=== PATIENT | female | born 1970 | race Caucasian/White ===

== ENCOUNTER 2016-10-03 19:18 | Emergency (ER) | payer OTHER ==
--- NOTE | ~2016-10-03 | EKG ---
PATIENT: LEONID HOLT UNIT #: [id number] Ventricular Rate: 79 BPM Atrial Rate: 79 BPM P-R Interval: 134 ms QRS Duration: 74 ms Q-T Interval: 356 ms QTC Calculation(Bezet): 408 ms P [place]: 28 degrees Calculated R [place]: 59 degrees Calculated T [place]: 52 degrees Diagnosis Line: Normal sinus rhythm Diagnosis Line: Normal ECG Diagnosis Line: When compared with ECG of 18-SEP-2014 01:24, Diagnosis Line: Vent. rate has decreased BY 39 BPM Diagnosis Line: ST no longer depressed in Lateral leads Diagnosis Line: Confirmed by SIRI ROOT MD ([id number]) on 10/04/2016 Diagnosis Line: 6:15:51 PM INTERPRETING MD: DK SEGURA
--- NOTE | ~2016-10-03 | CT71 ---
[facility] A Service of [facility] RADIOLOGY TEXT RESULTS PATIENT: LEONID HOLT LOCATION: SED : 74 UNIT #: [id number] AGE: [address]: Khanh Gale MD SEX: F ORDER DR: [id number] [place] [id number] E MR#: [id number] Acc #: [id number] NAME: LEONID HOLT. : 1970 SEX: F STUDY DATE/TIME: 10/03/2016 19:36 UNIT: SED ROOM: STUDY DESCRIPTION: CT Head Wo Contrast Attending Physician: Khanh Gale M.D. Ordering Physician: Juan Bradley M.D. Primary Care Physician: Lalitha Geller M.D. MEDICAL IMAGING REPORT This report is preliminary unless electronic signature is present. EXAM CT head without contrast performed on 10/03/2016 HISTORY 45-year-old female with headache and dizziness as well as visual disturbances in the left eye for 30 minutes. This happened this evening. TECHNIQUE This CT exam was performed with one or more of the following radiation dose reduction techniques: automatic exposure control, adjustment of mA and/or kV according to patient size, and iterative reconstruction. FINDINGS There is no shift of the midline structures, mass effect or acute hemorrhage present. No extraaxial fluid collection or hemorrhage is noted. The osseous skull is intact and the paranasal sinuses and mastoid air cells are clear. No orbital lesions are seen. IMPRESSION No acute intracranial abnormality. If clinical symptoms persist, a MRI is recommended for better evaluation. Dictated by... Oscar Bowling M.D. THIS IS AN ELECTRONICALLY VERIFIED REPORT Oscar Bowling M.D. at 10/04/2016 7:05 PM RP/pcl [facility] A Service of [facility] RADIOLOGY TEXT RESULTS PATIENT: LEONID HOLT LOCATION: SED : 74 UNIT #: [id number] AGE: [address]: Khanh Gale MD SEX: F ORDER DR: TD: 10/03/2016 23:38 JOB #: [id number] MEDICAL IMAGING REPORT
[2016-10-03 19:15] LABS: BASOPHIL% 0.5 % (0-2.5); EOSINOPHIL# 0.1 X10e3 (0-0.7); EOSINOPHIL% 1.7 % (0.0-7.0); HEMATOCRIT 40.8 % (35.0-45.0); HEMOGLOBIN 13.4 gm/dL (12.0-16.0); LYMPHOCYTE# 1.9 X10e3 (1.0-3.5); LYMPHOCYTE% 38.5 % (17.0-45.0); MEAN CELL VOLUME 85.9 FL (83-96); MEAN CORPUSCULAR HEMOGLOBIN 28.2 PG (28-34); MEAN CORPUSCULAR HGB CONC 32.8 g/dL (30-36); MEAN PLATELET VOLUME 9.1 FL (6.5-11.5); MONOCYTE# 0.4 X10e3 (0-1.0); MONOCYTE% 8.1 % (3.0-12.0); NEUTROPHIL# 2.5 X10e3 (1.5-7.1); NEUTROPHIL% 51.2 % (40-75); PLATELET COUNT 185 X10e3 (140-420); RED BLOOD COUNT 4.75 X10e (3.90-5.30); RED CELL DISTRIBUTION WIDTH 13.4 % (11.0-15.5)
[2016-10-03 19:17] LABS: DIFF IND NO
[~2016-10-03 19:18] MED LIST: ALLERGY SHOT; CIPRO PO; METOPROLOL TAR25 MG PO; NASACORT10.8 ML; NASONEX17 GM; NEXIUM PO; SINGULAIR PO; SYNTHROID125 PO; ZYRTEC-D T1 TAB.SR . PO; ZYRTEC-D TABLE1 EACH
[2016-10-03 19:28] LABS: POC - CKMB <1.0 ng/mL (0.0-7.9); POC - MYOGLOBIN 34.8 ng/mL (0.0-169.0); POC - TROPONIN <0.05 ng/mL (<=0.05)
[2016-10-03 19:32] LABS: ALBUMIN SERUM 4.3 g/dL (3.5-5.0); ALKALINE PHOSPHATASE 58 U/L (32-92); ALT (SGPT) 23 U/L (10-40); AST (SGOT) 26 U/L (10-42); BILIRUBIN, DIRECT 0.1 mg/dL (0.0-0.2); BILIRUBIN,INDIRECT 0.2 mg/dL (0.0-0.9); BILIRUBIN,TOTAL 0.3 mg/dL (0.2-2.0); BLOOD UREA NITROGEN 13 mg/dL (9-23); BUN/CREATININE RATIO 18.57; CALCIUM SERUM 9.1 mg/dL (8.4-10.2); CARBON DIOXIDE 26 mmol/L (22-31); CHLORIDE 105 mmol/L (100-111); CREATININE SERUM 0.7 mg/dL (0.6-1.4); GLOM FILT RATE Estimated ABOVE60 mL/min (>60); GLUCOSE FASTING 95 mg/dL (70-110); POTASSIUM 3.7 mmol/L (3.5-5.1); PROTEIN TOTAL SERUM 7.2 g/dL (6.0-8.3); SODIUM 139 mmol/L (135-145)
[2016-10-03 20:50] LABS: URINE APPEARANCE CLEAR; URINE BILIRUBIN NEG (NEG); URINE BLOOD NEG (NEG); URINE COLOR YELLOW; URINE GLUCOSE NEG (NORM); URINE KETONE NEG (NEG); URINE LEUKOCYTE ESTERASE NEG (NEG); URINE NITRATE NEG (NEG); URINE PROTEIN NEG (NEG); URINE SPECIFIC GRAVITY <=1.005 (1.003-1.035); URINE UROBILINOGEN 0.2 MG/DL (NORM)
[2016-10-03 20:51] LABS: MICRO INDICATED? NO; URINE SOURCE CLEAN CATCH
== END 2016-10-03 21:41 | disposition home or self-care (01) ==
LOC: SED 19:18
PROVIDERS: Emergency Medicine
DX: R42 Dizziness and giddiness (principal); K21.9 Gastro-esophageal reflux disease without esophagitis; Z79.899 Other long term (current) drug therapy
CPT/HCPCS: 36415; 70450; 80048; 80076; 81003; 82553; 83874; 84443; 84484; 85025; 93005; 99284